=== PATIENT | female | born 1945 | race Caucasian/White ===

== ENCOUNTER 2017-06-03 09:50 | Inpatient (IN) ==
[2017-06-03] MEDS ORDERED: CLINDAMYCIN INJ 600 MG in PREMIX 1 EACH IV STA (09:57)
[2017-06-03] MEDS ORDERED: metroNIDAZOLE INJ 500 MG in PREMIX 1 EACH IV STA (09:57)
[2017-06-03] MEDS ORDERED: fentaNYL 100 MCG/2 ML VIAL ONE ×2 (10:02→15:32)
[2017-06-03] MEDS ORDERED: ONDANSETRON 4 MG/2 ML VIAL ONE ×2 (10:02→15:33)
[2017-06-03] MEDS: ONDANSETRON 4 MG/2 ML VIAL IV PRN (10:15)
[2017-06-03] MEDS ORDERED: fentaNYL 100 MCG/2 ML VIAL IV STA (10:22)
[2017-06-03 10:25] LABS: Basophils % 0.4 % (0.0-0.8); Eosinophils # 0.1 10*3/uL (0.0-0.87); Eosinophils % 1.6 % (0.00-10.9); Hematocrit 41.6 VOL% (35.7-47.0); Hemoglobin 13.8 GM/DL (12.0-16.0); Immature Granulocytes % 0.2 %; Immature Granulocytes Absolute 0.01 #; Lymphocytes # 1.8 10*3/uL (1.4-4.0); Lymphocytes % 31.5 % (21.3-54.2); Mean Corpuscular HGB Conc 33.2 GM/DL (32-36); Mean Corpuscular Hemoglobin 30 PG (27-34); Mean Corpuscular Volume 89.1 FL (87-102); Mean Platelet Volume 11.1 FL (9.6-12.0); Monocytes # 0.3 10*3/uL (0.11-0.8); Monocytes % 4.7 % (1.7-12.7); Neutrophils # 3.5 10*3/uL (1.4-7.4); Neutrophils % 61.6 % (38.7-73.9); Platelet Count 283 T/CUMM (130-400); Red Blood Count 4.67 MC/CUMM (3.8-5.5); Red Cell Distribution Width 15.9 % (9.3-17.3); White Blood Count 5.6 T/CUMM (4-12)
[2017-06-03] MEDS ORDERED: CLINDAMYCIN INJ 50 ML IV ONE (10:26)
[2017-06-03] MEDS ORDERED: metroNIDAZOLE 500 MG/100 ML PREMIX IV ONE (10:26)
[2017-06-03 10:34] LABS: INR 1.1; PT Patient Result 11.7 SECS; Partial Thromboplastin Time 38.3 SECS (0-40)
[2017-06-03 11:08] LABS: Albumin 3.7 G/DL (3.4-5.0); Bilirubin,Total 0.5 MG/DL (0.2-1.0); Calcium 8.5 MG/DL (8.5-10.1); Osmolality,Calculated 281.3 MOS/KG (273-304); Potassium 3.9 MMOL/L (3.5-5.1); Total Protein 6.4 G/DL (6.4-8.3)
[2017-06-03] MEDS ORDERED: BUPIVACAINE LIPOSOMAL 20 ML/266 MG VIAL ONE (13:01)
[2017-06-03] MEDS ORDERED: LIDOCAINE 1%/EPI INJ 20 ML VIAL ONE (15:16)
[2017-06-03] MEDS ORDERED: TISSUE ADHESIVE 1 EACH APPLICATOR TOP ONE (15:16)
[2017-06-03] MEDS ORDERED: BUPIVACAINE 0.25% 50 ML VIAL ONE (15:16)
[2017-06-03] MEDS ORDERED: PROPOFOL 200 MG/20 ML VIAL IV ONE (15:32)
[2017-06-03] MEDS ORDERED: MIDAZOLAM 2 MG/2 ML VIAL ONE (15:32)
[2017-06-03 15:33] LABS: Apearance,Urine Slightly Hazy (Clear); Bilirubin,Urine Negative (Negative); Blood, Urine Negative (Negative); Glucose,Urine (UA) Negative (Negative); Ketones,Urine Negative (Negative); Mucus,Urine Occasional /LPF (Occasional); Nitrite,Urine Negative (Negative); Protein,Urine Negative; RBC,Urine 2 /HPF (0-4); Squamous Epithelial Cell,Urine Occasional /HPF (0-10); Urine Color Yellow (Yellow); Urine Specific Gravity 1.012 (1.001-1.035); Urine Urobilinogen < 2.0 EU/DL (0.2-1.0); WBC,Urine 1 /HPF (0-6)
[2017-06-03] MEDS ORDERED: ROCURONIUM 100 MG/10 ML VIAL IV ONE (15:33)
[2017-06-03] MEDS ORDERED: SUCCINYLCHOLINE 200 MG/10 ML VIAL ONE (15:33)
[2017-06-03] MEDS ORDERED: ePHEDrine 50 MG/ML AMP ONE (15:33)
[2017-06-03] MEDS ORDERED: LACTATED RINGERS 2,000 ML IV ONE (15:34)
[2017-06-03] MEDS ORDERED: GLYCOPYRROLATE 0.4 MG/2 ML VIAL ONE (15:34)
[2017-06-03] MEDS ORDERED: NEOSTIGMINE 10 MG/10 ML VIAL ONE (15:34)
[2017-06-03] MEDS ORDERED: SEVOFLURANE 1 UNIT/15 MINUTE INH ONE (15:34)
[2017-06-03] MEDS ORDERED: ONDANSETRON 4 MG/2 ML VIAL IV PRN (15:53)
[2017-06-03] MEDS: HYDROmorphone 2 MG/1 ML VIAL IV PRN ×6 (15:58→23:43)
[2017-06-03] MEDS: LACTATED RINGERS 1,000 ML IV SCH ×3 (17:30→20:47)
[2017-06-03] MEDS ORDERED: ESMOLOL 100 MG/10 ML VIAL IV ONE (17:59)
[2017-06-03 19:55] LABS: Hematocrit 41.3 VOL% (35.7-47.0); Hemoglobin 13.5 GM/DL (12.0-16.0)
[2017-06-03] MEDS: CLINDAMYCIN INJ 900 MG in PREMIX 1 EACH IV SCH (20:49)
[2017-06-03] MEDS: metroNIDAZOLE INJ 500 MG in PREMIX 1 EACH IV SCH (22:39)
[2017-06-03] MEDS: FLUTICASONE 50 MCG NASAL SPRAY 16 GM BOTTLE BOTH NARES SCH (23:39)
[2017-06-04] MEDS: HYDROmorphone 2 MG/1 ML VIAL IV PRN ×6 (02:31→20:41)
[2017-06-04] MEDS: CLINDAMYCIN INJ 900 MG in PREMIX 1 EACH IV SCH ×3 (04:36→20:47)
[2017-06-04] MEDS ORDERED: ALBUTEROL/IPRATROPIUM 3 ML NEB RESP TX ONE (05:21)
[2017-06-04] MEDS: metroNIDAZOLE INJ 500 MG in PREMIX 1 EACH IV SCH ×3 (06:03→21:45)
[2017-06-04 07:47] LABS: Basophils % 0.2 % (0.0-0.8); Hematocrit 38.7 VOL% (35.7-47.0); Hemoglobin 12.4 GM/DL (12.0-16.0); Immature Granulocytes % 0.5 %; Immature Granulocytes Absolute 0.07 #; Lymphocytes # 0.5 10*3/uL (1.4-4.0); Lymphocytes % 3.5 % (21.3-54.2); Mean Corpuscular Hemoglobin 30 PG (27-34); Mean Corpuscular Volume 92.1 FL (87-102); Mean Platelet Volume 11.3 FL (9.6-12.0); Monocytes # 0.4 10*3/uL (0.11-0.8); Monocytes % 2.8 % (1.7-12.7); Neutrophils # 14.3 10*3/uL (1.4-7.4); Platelet Count 304 T/CUMM (130-400); Red Cell Distribution Width 16.8 % (9.3-17.3); White Blood Count 15.3 T/CUMM (4-12)
[2017-06-04 08:19] LABS: Band Neutrophils 21 % (0-10); Lymphocytes 4 % (20-55); Metamyelocytes 2 %; Segmented Neutrophils 71 % (50-85); Total Cells Counted 100
[2017-06-04 08:20] LABS: Hypochromasia 1+; Microcytosis 1+
[2017-06-04 08:28] LABS: Albumin 2.6 G/DL (3.4-5.0); Bilirubin,Total 0.8 MG/DL (0.2-1.0); Calcium 7.3 MG/DL (8.5-10.1); Osmolality,Calculated 288.8 MOS/KG (273-304); Potassium 4.3 MMOL/L (3.5-5.1)
[2017-06-04] MEDS: PANTOPRAZOLE 40 MG VIAL IV SCH (08:57)
[2017-06-04] MEDS: FLUTICASONE 50 MCG NASAL SPRAY 16 GM BOTTLE BOTH NARES SCH ×2 (08:57→21:47)
[2017-06-04] MEDS: LACTATED RINGERS 1,000 ML IV SCH ×3 (10:16→21:49)
[2017-06-04] MEDS ORDERED: PHENOL 1.4% THROAT SPRAY 177 ML BOTTLE PO PRN (11:24)
[2017-06-04] MEDS ORDERED: BENZOCAINE/MENTHOL LOZENGE 18/BOX PO PRN (12:46)
[2017-06-04] MEDS: ALBUTEROL/IPRATROPIUM 3 ML NEB RESP TX SCH ×2 (13:03→19:38)
[2017-06-04] MEDS: ENOXAPARIN 40 MG/0.4 ML SYRINGE SUBCUT SCH (13:05)
[2017-06-04] MEDS ORDERED: diphenhydrAMINE 2% CREAM 28 GM TUBE TOP PRN (15:16)
[2017-06-04] MEDS ORDERED: SKIN HEALING OINT (AQUAPHOR) 50 GM TUBE TOP PRN (15:16)
[2017-06-04] MEDS: diphenhydrAMINE 50 MG/1 ML VIAL IV PRN ×2 (15:43→21:42)
[2017-06-05] MEDS: HYDROmorphone 2 MG/1 ML VIAL IV PRN ×5 (00:19→20:14)
[2017-06-05] MEDS: ALBUTEROL/IPRATROPIUM 3 ML NEB RESP TX SCH ×4 (00:22→20:09)
[2017-06-05] MEDS: diphenhydrAMINE 50 MG/1 ML VIAL IV PRN (04:33)
[2017-06-05] MEDS: CLINDAMYCIN INJ 900 MG in PREMIX 1 EACH IV SCH ×4 (04:40→20:19)
[2017-06-05] MEDS: metroNIDAZOLE INJ 500 MG in PREMIX 1 EACH IV SCH ×4 (05:26→21:43)
[2017-06-05] MEDS: LACTATED RINGERS 1,000 ML IV SCH (08:12)
[2017-06-05] MEDS: ENOXAPARIN 40 MG/0.4 ML SYRINGE SUBCUT SCH (08:14)
[2017-06-05] MEDS: PANTOPRAZOLE 40 MG VIAL IV SCH (08:14)
[2017-06-05] MEDS: FLUTICASONE 50 MCG NASAL SPRAY 16 GM BOTTLE BOTH NARES SCH ×2 (08:19→21:44)
[2017-06-05] MEDS: AZELASTINE BOTH NARES SCH ×2 (10:44→10:53)
[2017-06-05] MEDS: FLUTICASONE BOTH NARES SCH ×2 (10:44→10:53)
[2017-06-05] MEDS: DEXTROSE 5% NACL 0.45% 1,000 ML IV SCH ×2 (11:24→14:47)
[2017-06-06] MEDS: ALBUTEROL/IPRATROPIUM 3 ML NEB RESP TX SCH ×5 (00:14→21:00)
[2017-06-06] MEDS: DEXTROSE 5% NACL 0.45% 1,000 ML IV SCH ×2 (00:56→13:44)
[2017-06-06] MEDS: HYDROmorphone 2 MG/1 ML VIAL IV PRN ×5 (03:24→23:57)
[2017-06-06] MEDS: CLINDAMYCIN INJ 900 MG in PREMIX 1 EACH IV SCH (03:25)
[2017-06-06] MEDS: metroNIDAZOLE INJ 500 MG in PREMIX 1 EACH IV SCH (04:55)
[2017-06-06 06:44] LABS: Basophils % 0.1 % (0.0-0.8); Hematocrit 32.2 VOL% (35.7-47.0); Hemoglobin 10.5 GM/DL (12.0-16.0); Immature Granulocytes % 0.3 %; Immature Granulocytes Absolute 0.04 #; Lymphocytes # 0.5 10*3/uL (1.4-4.0); Lymphocytes % 3.2 % (21.3-54.2); Mean Corpuscular HGB Conc 32.6 GM/DL (32-36); Mean Corpuscular Hemoglobin 30 PG (27-34); Mean Corpuscular Volume 90.4 FL (87-102); Mean Platelet Volume 11.4 FL (9.6-12.0); Monocytes # 0.3 10*3/uL (0.11-0.8); Monocytes % 2.2 % (1.7-12.7); Neutrophils # 13.2 10*3/uL (1.4-7.4); Neutrophils % 94.2 % (38.7-73.9); Platelet Count 247 T/CUMM (130-400); Red Blood Count 3.56 MC/CUMM (3.8-5.5); Red Cell Distribution Width 17.4 % (9.3-17.3)
[2017-06-06 07:13] LABS: Calcium 7.1 MG/DL (8.5-10.1); Magnesium 1.8 MG/DL (1.8-2.4); Osmolality,Calculated 286.1 MOS/KG (273-304); Potassium 3.5 MMOL/L (3.5-5.1)
[2017-06-06 07:25] LABS: Band Neutrophils 3 % (0-10); Lymphocytes 5 % (20-55); Segmented Neutrophils 91 % (50-85); Total Cells Counted 100
[2017-06-06] MEDS ORDERED: POTASSIUM CHLORIDE INJ 20 MEQ in DEXTROSE 5% NACL 0.45% 1,000 ML IV SCH (07:45)
[2017-06-06] MEDS: METOCLOPRAMIDE 10 MG/2 ML VIAL IV SCH ×2 (08:39→15:00)
[2017-06-06] MEDS: PANTOPRAZOLE 40 MG VIAL IV SCH (08:39)
[2017-06-06] MEDS: ALUMINUM/MAGNES/SIMETH MAX STR 30 ML UDCUP PO SCH ×3 (08:39→22:24)
[2017-06-06] MEDS: FLUTICASONE 50 MCG NASAL SPRAY 16 GM BOTTLE BOTH NARES SCH ×2 (08:40→22:43)
[2017-06-06] MEDS: ENOXAPARIN 40 MG/0.4 ML SYRINGE SUBCUT SCH (08:40)
[2017-06-06] MEDS ORDERED: FUROSEMIDE 40 MG/4 ML VIAL IV ONE ×2 (09:30→20:21)
[2017-06-06] MEDS: DEXT 5% NACL 0.45% KCL 20 MEQ 20 MEQ/1,000 ML BAG IV SCH ×2 (13:43→16:20)
[2017-06-06] MEDS: ONDANSETRON 4 MG/2 ML VIAL IV PRN (14:59)
[2017-06-06] MEDS ORDERED: DILTIAZEM 50 MG/10 ML VIAL IV ONE ×3 (19:45→19:50)
[2017-06-06 19:49] LABS: Basophils # 0.1 10*3/uL (0.0-0.2); Basophils % 0.4 % (0.0-0.8); Eosinophils % 0.2 % (0.00-10.9); Hematocrit 35.1 VOL% (35.7-47.0); Hemoglobin 11.6 GM/DL (12.0-16.0); Immature Granulocytes % 0.3 %; Immature Granulocytes Absolute 0.05 #; Lymphocytes # 1.2 10*3/uL (1.4-4.0); Lymphocytes % 7.8 % (21.3-54.2); Mean Corpuscular Hemoglobin 30 PG (27-34); Mean Corpuscular Volume 89.3 FL (87-102); Mean Platelet Volume 11.3 FL (9.6-12.0); Monocytes # 0.5 10*3/uL (0.11-0.8); Monocytes % 3.4 % (1.7-12.7); Neutrophils # 13.6 10*3/uL (1.4-7.4); Neutrophils % 87.9 % (38.7-73.9); Platelet Count 266 T/CUMM (130-400); Red Blood Count 3.93 MC/CUMM (3.8-5.5); Red Cell Distribution Width 17.4 % (9.3-17.3); White Blood Count 15.5 T/CUMM (4-12)
[2017-06-06] MEDS ORDERED: DILTIAZEM 100 MG VIAL.ADD IV ONE (19:50)
[2017-06-06] MEDS ORDERED: SODIUM CHLORIDE 0.9% 0 ML IV ONE (19:51)
[2017-06-06] MEDS ORDERED: AMIODARONE INJ 150 MG in DEXTROSE 5% 100 ML IV ONE (19:53)
[2017-06-06] MEDS: DILTIAZEM INJ 100 MG in SODIUM CHLORIDE 0.9% 100 ML IV SCH (19:55)
[2017-06-06] MEDS ORDERED: SODIUM CHLORIDE 0.9% 250 ML IV ONE (19:56)
[2017-06-06 20:10] LABS: Calcium 7.2 MG/DL (8.5-10.1); Magnesium 1.7 MG/DL (1.8-2.4); Osmolality,Calculated 278.4 MOS/KG (273-304); Potassium 3.4 MMOL/L (3.5-5.1)
[2017-06-06] MEDS ORDERED: METOPROLOL TARTRATE 5 MG/5 ML VIAL IV ONE ×2 (20:16→20:23)
[2017-06-06] MEDS ORDERED: FUROSEMIDE 40 MG/4 ML VIAL ONE (20:21)
[2017-06-06] MEDS ORDERED: POTASSIUM CHLORIDE 20 MEQ TABLET PO ONE (20:22)
[2017-06-06] MEDS ORDERED: MAGNESIUM SULF RIDER 1 GM in PREMIX 1 EACH IV ONE (20:22)
[2017-06-06] MEDS ORDERED: MAGNESIUM SULF RIDER 50 ML IV ONE (20:25)
[2017-06-06 20:34] LABS: ABG Base Excess 2.3 MMOL/L (-2.5-2.5); ABG HCO3 26.4 MMOL/L (20-26); ABG PCO2 39.1 MM HG (35-48); ABG PH 7.447 (7.35-7.45); ABG PO2 68.2 MM HG (80-95); ABG TCO2 27.6 MMOL/L (23-27)
[2017-06-07] MEDS: ONDANSETRON 4 MG/2 ML VIAL IV PRN (00:03)
[2017-06-07] MEDS: ALBUTEROL/IPRATROPIUM 3 ML NEB RESP TX SCH ×2 (01:33→08:03)
[2017-06-07] MEDS: ALUMINUM/MAGNES/SIMETH MAX STR 30 ML UDCUP PO SCH ×4 (02:12→21:49)
[2017-06-07] MEDS: DILTIAZEM INJ 100 MG in SODIUM CHLORIDE 0.9% 100 ML IV SCH ×3 (02:13→21:49)
[2017-06-07 02:38] LABS: Basophils % 0.2 % (0.0-0.8); Eosinophils % 0.1 % (0.00-10.9); Hematocrit 33.3 VOL% (35.7-47.0); Hemoglobin 10.8 GM/DL (12.0-16.0); Immature Granulocytes % 0.5 %; Immature Granulocytes Absolute 0.07 #; Lymphocytes # 0.9 10*3/uL (1.4-4.0); Lymphocytes % 5.9 % (21.3-54.2); Mean Corpuscular HGB Conc 32.4 GM/DL (32-36); Mean Corpuscular Hemoglobin 29 PG (27-34); Mean Platelet Volume 11.2 FL (9.6-12.0); Monocytes # 0.6 10*3/uL (0.11-0.8); Monocytes % 3.8 % (1.7-12.7); Neutrophils # 13.9 10*3/uL (1.4-7.4); Neutrophils % 89.5 % (38.7-73.9); Platelet Count 243 T/CUMM (130-400); Red Cell Distribution Width 17.4 % (9.3-17.3); White Blood Count 15.5 T/CUMM (4-12)
[2017-06-07 02:48] LABS: INR 1.1
[2017-06-07 02:55] LABS: Partial Thromboplastin Time 40.9 SECS (0-40)
[2017-06-07 03:07] LABS: Albumin 2.1 G/DL (3.4-5.0); Bilirubin,Total 0.4 MG/DL (0.2-1.0); Calcium 6.9 MG/DL (8.5-10.1); Osmolality,Calculated 282.1 MOS/KG (273-304); Potassium 3.4 MMOL/L (3.5-5.1); Total Protein 4.7 G/DL (6.4-8.3)
[2017-06-07 03:49] LABS: Allen Test Positive
[2017-06-07 03:50] LABS: ABG Base Excess 3.1 MMOL/L (-2.5-2.5); ABG HCO3 27.1 MMOL/L (20-26); ABG Oxygen Saturation 96.9 % (95-100); ABG PO2 79.8 MM HG (80-95); ABG TCO2 26.2 MMOL/L (23-27)
[2017-06-07] MEDS: HYDROmorphone 2 MG/1 ML VIAL IV PRN ×3 (04:40→16:12)
[2017-06-07 06:33] LABS: Band Neutrophils 19 % (0-10); Hypochromasia 1+; Lymphocytes 4 % (20-55); Platelet Estimate Adequate; Segmented Neutrophils 72 % (50-85); Total Cells Counted 100
[2017-06-07] MEDS ORDERED: FUROSEMIDE 40 MG/4 ML VIAL IV ONE (08:36)
[2017-06-07] MEDS: ENOXAPARIN 40 MG/0.4 ML SYRINGE SUBCUT SCH (12:05)
[2017-06-07] MEDS: PANTOPRAZOLE 40 MG VIAL IV SCH (12:05)
[2017-06-07] MEDS: FLUTICASONE 50 MCG NASAL SPRAY 16 GM BOTTLE BOTH NARES SCH ×2 (12:06→21:51)
[2017-06-07 13:32] LABS: Free T4 (Free Thyroxine) 0.97 NG/DL (0.76-1.46); Thyroid Stimulating Hormone 0.594 uIU/ml (0.358-3.74)
[2017-06-07 13:33] LABS: Troponin I Only 0.098 NG/ML (0.00-0.045)
[2017-06-07] MEDS: ALBUTEROL 2.5 MG/3 ML NEB RESP TX SCH (15:45)
[2017-06-08] MEDS: HYDROmorphone 2 MG/1 ML VIAL IV PRN ×2 (00:06→04:00)
[2017-06-08] MEDS: ALBUTEROL 2.5 MG/3 ML NEB RESP TX SCH ×4 (00:57→23:38)
[2017-06-08] MEDS: ALUMINUM/MAGNES/SIMETH MAX STR 30 ML UDCUP PO SCH ×4 (01:38→21:01)
[2017-06-08 05:46] LABS: Basophils # 0.1 10*3/uL (0.0-0.2); Basophils % 0.6 % (0.0-0.8); Eosinophils % 0.1 % (0.00-10.9); Hematocrit 35.5 VOL% (35.7-47.0); Hemoglobin 11.6 GM/DL (12.0-16.0); Immature Granulocytes % 0.6 %; Immature Granulocytes Absolute 0.06 #; Lymphocytes # 0.7 10*3/uL (1.4-4.0); Lymphocytes % 6.6 % (21.3-54.2); Mean Corpuscular HGB Conc 32.7 GM/DL (32-36); Mean Corpuscular Hemoglobin 30 PG (27-34); Mean Platelet Volume 11.7 FL (9.6-12.0); Monocytes # 0.7 10*3/uL (0.11-0.8); Neutrophils # 9.3 10*3/uL (1.4-7.4); Neutrophils % 86.1 % (38.7-73.9); Platelet Count 263 T/CUMM (130-400); Red Cell Distribution Width 17.8 % (9.3-17.3); White Blood Count 10.8 T/CUMM (4-12)
[2017-06-08 05:59] LABS: Calcium 7.6 MG/DL (8.5-10.1); Magnesium 2.2 MG/DL (1.8-2.4); Osmolality,Calculated 291.6 MOS/KG (273-304); Potassium 3.5 MMOL/L (3.5-5.1)
[2017-06-08 06:25] LABS: Risk Ratio 5.55; VLDL CHOLESTEROL 35.2 MG/DL
[2017-06-08] MEDS: DILTIAZEM INJ 100 MG in SODIUM CHLORIDE 0.9% 100 ML IV SCH ×2 (06:33→15:00)
[2017-06-08 07:11] LABS: Band Neutrophils 2 % (0-10); Hypochromasia 1+; Lymphocytes 2 % (20-55); Metamyelocytes 1 %; Microcytosis 1+; Segmented Neutrophils 91 % (50-85); Total Cells Counted 100
[2017-06-08 07:12] LABS: Platelet Estimate Normal
[2017-06-08] MEDS ORDERED: FUROSEMIDE 40 MG/4 ML VIAL IV SCH (09:00)
[2017-06-08] MEDS: FLUTICASONE 50 MCG NASAL SPRAY 16 GM BOTTLE BOTH NARES SCH ×2 (09:23→21:01)
[2017-06-08] MEDS: ENOXAPARIN 40 MG/0.4 ML SYRINGE SUBCUT SCH (09:26)
[2017-06-08] MEDS: PANTOPRAZOLE 40 MG VIAL IV SCH (09:26)
[2017-06-08] MEDS ORDERED: SODIUM PHOSPHATE ENEMA 133 ML BOTTLE RECTAL ONE (11:17)
[2017-06-08] MEDS: ONDANSETRON 4 MG/2 ML VIAL IV PRN (23:11)
[2017-06-09] MEDS: HYDROmorphone 2 MG/1 ML VIAL IV PRN ×3 (00:20→20:18)
[2017-06-09] MEDS: ALUMINUM/MAGNES/SIMETH MAX STR 30 ML UDCUP PO SCH ×4 (03:29→20:16)
[2017-06-09] MEDS: ONDANSETRON 4 MG/2 ML VIAL IV PRN ×3 (03:29→18:11)
[2017-06-09 04:38] LABS: Basophils % 0.1 % (0.0-0.8); Hematocrit 37.2 VOL% (35.7-47.0); Hemoglobin 12.5 GM/DL (12.0-16.0); Immature Granulocytes % 0.9 %; Immature Granulocytes Absolute 0.08 #; Lymphocytes # 0.7 10*3/uL (1.4-4.0); Lymphocytes % 7.5 % (21.3-54.2); Mean Corpuscular HGB Conc 33.6 GM/DL (32-36); Mean Corpuscular Hemoglobin 30 PG (27-34); Mean Corpuscular Volume 88.8 FL (87-102); Mean Platelet Volume 11.5 FL (9.6-12.0); Monocytes # 0.4 10*3/uL (0.11-0.8); Monocytes % 4.6 % (1.7-12.7); NRBC # 0.02 10*3/uL; Neutrophils # 7.7 10*3/uL (1.4-7.4); Neutrophils % 86.9 % (38.7-73.9); Platelet Count 317 T/CUMM (130-400); Red Blood Count 4.19 MC/CUMM (3.8-5.5); Red Cell Distribution Width 17.5 % (9.3-17.3); White Blood Count 8.9 T/CUMM (4-12)
[2017-06-09 04:54] LABS: Calcium 7.8 MG/DL (8.5-10.1); Magnesium 2.5 MG/DL (1.8-2.4); Osmolality,Calculated 297.4 MOS/KG (273-304); Potassium 2.9 MMOL/L (3.5-5.1)
[2017-06-09 05:45] LABS: Band Neutrophils 12 % (0-10); Lymphocytes 10 % (20-55); Nucleated Red Blood Cells 1 (0-5); Platelet Estimate Normal; Segmented Neutrophils 74 % (50-85); Total Cells Counted 100
[2017-06-09 05:47] LABS: Anisocytosis 1+; Hypochromasia 2+; Macrocytosis 1+
[2017-06-09] MEDS: ALBUTEROL 2.5 MG/3 ML NEB RESP TX SCH ×3 (07:46→22:48)
[2017-06-09] MEDS: PANTOPRAZOLE 40 MG VIAL IV SCH (08:58)
[2017-06-09] MEDS: FLUTICASONE 50 MCG NASAL SPRAY 16 GM BOTTLE BOTH NARES SCH ×2 (08:58→20:26)
[2017-06-09] MEDS: ENOXAPARIN 40 MG/0.4 ML SYRINGE SUBCUT SCH (08:58)
[2017-06-09] MEDS: DILTIAZEM INJ 100 MG in SODIUM CHLORIDE 0.9% 100 ML IV SCH (11:52)
[2017-06-09] MEDS ORDERED: SODIUM PHOSPHATE ENEMA 133 ML BOTTLE RECTAL PRN (11:53)
[2017-06-09] MEDS ORDERED: POTASSIUM CHLORIDE 20 MEQ/15 ML UDCUP PO ONE (11:54)
[2017-06-09] MEDS: METOPROLOL TARTRATE 25 MG TABLET PO SCH ×2 (12:26→20:16)
[2017-06-09] MEDS: POTASSIUM CHLORIDE RIDER 10 MEQ in PREMIX 1 EACH IV PRN ×5 (12:31→16:44)
[2017-06-09] MEDS ORDERED: LACTATED RINGERS 1,000 ML IV ONE (13:40)
[2017-06-09] MEDS ORDERED: EPINEPHrine 1 MG/10 ML SYRINGE ONE (14:03)
[2017-06-09 20:45] LABS: Calcium 7.7 MG/DL (8.5-10.1); Magnesium 2.6 MG/DL (1.8-2.4); Osmolality,Calculated 297.6 MOS/KG (273-304); Phosphorous 0.8 MG/DL (2.5-4.9); Potassium 3.5 MMOL/L (3.5-5.1)
[2017-06-10] MEDS: ALUMINUM/MAGNES/SIMETH MAX STR 30 ML UDCUP PO SCH ×4 (03:23→20:48)
[2017-06-10] MEDS: DILTIAZEM INJ 100 MG in SODIUM CHLORIDE 0.9% 100 ML IV SCH ×2 (03:24→21:42)
[2017-06-10 06:05] LABS: Basophils # 0.1 10*3/uL (0.0-0.2); Basophils % 0.4 % (0.0-0.8); Eosinophils # 0.1 10*3/uL (0.0-0.87); Eosinophils % 1.3 % (0.00-10.9); Hematocrit 33.1 VOL% (35.7-47.0); Hemoglobin 10.9 GM/DL (12.0-16.0); Immature Granulocytes % 0.9 %; Lymphocytes % 9.1 % (21.3-54.2); Mean Corpuscular HGB Conc 32.9 GM/DL (32-36); Mean Corpuscular Hemoglobin 29 PG (27-34); Mean Corpuscular Volume 88.7 FL (87-102); Monocytes # 0.5 10*3/uL (0.11-0.8); Monocytes % 4.4 % (1.7-12.7); NRBC # 0.02 10*3/uL; Neutrophils # 9.4 10*3/uL (1.4-7.4); Neutrophils % 83.9 % (38.7-73.9); Platelet Count 303 T/CUMM (130-400); Red Blood Count 3.73 MC/CUMM (3.8-5.5); Red Cell Distribution Width 17.3 % (9.3-17.3); White Blood Count 11.2 T/CUMM (4-12)
[2017-06-10 06:18] LABS: Calcium 7.8 MG/DL (8.5-10.1); Magnesium 2.7 MG/DL (1.8-2.4); Osmolality,Calculated 302.1 MOS/KG (273-304); Potassium 3.6 MMOL/L (3.5-5.1)
[2017-06-10 06:47] LABS: Hypochromasia 1+; Platelet Estimate Adequate
[2017-06-10 06:48] LABS: Giant Platelets Few; Microcytosis Slight
[2017-06-10] MEDS: ALBUTEROL 2.5 MG/3 ML NEB RESP TX SCH ×3 (07:37→23:42)
[2017-06-10] MEDS: ENOXAPARIN 40 MG/0.4 ML SYRINGE SUBCUT SCH (08:19)
[2017-06-10] MEDS: METOPROLOL TARTRATE 25 MG TABLET PO SCH ×2 (08:19→20:47)
[2017-06-10] MEDS: FLUTICASONE 50 MCG NASAL SPRAY 16 GM BOTTLE BOTH NARES SCH ×2 (08:20→20:48)
[2017-06-10] MEDS: PANTOPRAZOLE 40 MG VIAL IV SCH (08:20)
[2017-06-10] MEDS: ASCORBIC ACID 500 MG TABLET PO SCH ×2 (15:30→20:47)
[2017-06-11] MEDS: ALUMINUM/MAGNES/SIMETH MAX STR 30 ML UDCUP PO SCH ×4 (02:49→20:26)
[2017-06-11] MEDS: LORazepam 2 MG/1 ML VIAL IV PRN ×2 (03:18→06:12)
[2017-06-11 05:30] LABS: Basophils % 0.3 % (0.0-0.8); Eosinophils # 0.1 10*3/uL (0.0-0.87); Eosinophils % 0.4 % (0.00-10.9); Hematocrit 31.9 VOL% (35.7-47.0); Hemoglobin 10.7 GM/DL (12.0-16.0); Immature Granulocytes % 1.7 %; Immature Granulocytes Absolute 0.24 #; Lymphocytes # 1.3 10*3/uL (1.4-4.0); Lymphocytes % 8.8 % (21.3-54.2); Mean Corpuscular HGB Conc 33.5 GM/DL (32-36); Mean Corpuscular Hemoglobin 29 PG (27-34); Mean Corpuscular Volume 87.6 FL (87-102); Monocytes # 0.5 10*3/uL (0.11-0.8); Monocytes % 3.4 % (1.7-12.7); NRBC # 0.03 10*3/uL; Neutrophils # 12.4 10*3/uL (1.4-7.4); Neutrophils % 85.4 % (38.7-73.9); Platelet Count 309 T/CUMM (130-400); Red Blood Count 3.64 MC/CUMM (3.8-5.5); Red Cell Distribution Width 17.3 % (9.3-17.3); White Blood Count 14.5 T/CUMM (4-12)
[2017-06-11 05:54] LABS: Calcium 7.6 MG/DL (8.5-10.1); Magnesium 2.3 MG/DL (1.8-2.4); Osmolality,Calculated 288.7 MOS/KG (273-304); Potassium 3.2 MMOL/L (3.5-5.1)
[2017-06-11 06:11] LABS: Band Neutrophils 3 % (0-10); Lymphocytes 6 % (20-55); Segmented Neutrophils 87 % (50-85); Total Cells Counted 100
[2017-06-11 06:12] LABS: Anisocytosis 1+; Microcytosis 1+; Platelet Estimate Normal
[2017-06-11] MEDS: POTASSIUM CHLORIDE RIDER 10 MEQ in PREMIX 1 EACH IV PRN (06:48)
[2017-06-11] MEDS: ALBUTEROL 2.5 MG/3 ML NEB RESP TX SCH ×2 (07:31→15:51)
[2017-06-11] MEDS: POTASSIUM CHLORIDE RIDER 20 MEQ in PREMIX 1 EACH IV PRN ×2 (08:42→16:54)
[2017-06-11] MEDS: ENOXAPARIN 40 MG/0.4 ML SYRINGE SUBCUT SCH (08:55)
[2017-06-11] MEDS: PANTOPRAZOLE 40 MG VIAL IV SCH (08:56)
[2017-06-11] MEDS ORDERED: QUEtiapine 25 MG TABLET PO SCH (09:00)
[2017-06-11] MEDS ORDERED: FUROSEMIDE 40 MG/4 ML VIAL IV ONE (09:00)
[2017-06-11] MEDS: FLUTICASONE 50 MCG NASAL SPRAY 16 GM BOTTLE BOTH NARES SCH ×2 (09:00→21:20)
[2017-06-11] MEDS: METOPROLOL TARTRATE 25 MG TABLET PO SCH ×2 (09:00→21:17)
[2017-06-11] MEDS: ASCORBIC ACID 500 MG TABLET PO SCH ×2 (09:00→21:20)
[2017-06-11] MEDS: DILTIAZEM INJ 100 MG in SODIUM CHLORIDE 0.9% 100 ML IV SCH (20:26)
[2017-06-11] MEDS: QUEtiapine 25 MG TABLET PO SCH (21:17)
[2017-06-12] MEDS: ALBUTEROL 2.5 MG/3 ML NEB RESP TX SCH ×3 (00:06→15:04)
[2017-06-12] MEDS: ALUMINUM/MAGNES/SIMETH MAX STR 30 ML UDCUP PO SCH ×4 (03:10→20:38)
[2017-06-12 06:17] LABS: Basophils # 0.1 10*3/uL (0.0-0.2); Basophils % 0.2 % (0.0-0.8); Eosinophils # 0.1 10*3/uL (0.0-0.87); Eosinophils % 0.4 % (0.00-10.9); Hemoglobin 11.2 GM/DL (12.0-16.0); Immature Granulocytes % 1.1 %; Immature Granulocytes Absolute 0.23 #; Lymphocytes # 1.7 10*3/uL (1.4-4.0); Lymphocytes % 8.1 % (21.3-54.2); Mean Corpuscular HGB Conc 33.9 GM/DL (32-36); Mean Corpuscular Hemoglobin 30 PG (27-34); Mean Corpuscular Volume 87.5 FL (87-102); Mean Platelet Volume 11.9 FL (9.6-12.0); Monocytes # 0.6 10*3/uL (0.11-0.8); Monocytes % 2.7 % (1.7-12.7); NRBC # 0.03 10*3/uL; Neutrophils # 18.6 10*3/uL (1.4-7.4); Neutrophils % 87.5 % (38.7-73.9); Platelet Count 319 T/CUMM (130-400); Red Blood Count 3.77 MC/CUMM (3.8-5.5); Red Cell Distribution Width 17.4 % (9.3-17.3); White Blood Count 21.2 T/CUMM (4-12)
[2017-06-12 06:49] LABS: Band Neutrophils 3 % (0-10); Giant Platelets Few; Hypochromasia 1+; Lymphocytes 5 % (20-55); Microcytosis Slight; Ovalocytes Slight; Platelet Estimate Adequate; Segmented Neutrophils 91 % (50-85); Total Cells Counted 100
[2017-06-12 06:50] LABS: Magnesium 2.1 MG/DL (1.8-2.4); Osmolality,Calculated 289.6 MOS/KG (273-304); Potassium 3.4 MMOL/L (3.5-5.1)
[2017-06-12] MEDS: METOPROLOL TARTRATE 25 MG TABLET PO SCH ×2 (11:27→20:39)
[2017-06-12] MEDS: POTASSIUM CHLORIDE 10 MEQ TABLET PO SCH ×2 (11:27→20:38)
[2017-06-12] MEDS: MAGNESIUM CHLORIDE 64 MG TABLET PO SCH (11:28)
[2017-06-12] MEDS: ASCORBIC ACID 500 MG TABLET PO SCH ×2 (11:28→20:38)
[2017-06-12] MEDS: FLUTICASONE 50 MCG NASAL SPRAY 16 GM BOTTLE BOTH NARES SCH ×2 (11:32→20:41)
[2017-06-12] MEDS: ENOXAPARIN 40 MG/0.4 ML SYRINGE SUBCUT SCH (11:33)
[2017-06-12] MEDS: PANTOPRAZOLE 40 MG VIAL IV SCH (11:35)
[2017-06-12] MEDS: oxyCODONE/ACETAMINOPHEN 5-325 MG TABLET PO PRN (18:11)
[2017-06-12] MEDS: cefTRIAXone 1,000 MG in SYRINGE 1 EACH IV SCH (18:12)
[2017-06-12] MEDS: QUEtiapine 25 MG TABLET PO SCH (20:38)
[2017-06-12] MEDS: ACETAMINOPHEN 325 MG TABLET PO PRN (20:39)
[2017-06-13] MEDS: ALBUTEROL 2.5 MG/3 ML NEB RESP TX SCH ×3 (00:44→14:16)
[2017-06-13] MEDS: oxyCODONE/ACETAMINOPHEN 5-325 MG TABLET PO PRN ×3 (03:11→18:21)
[2017-06-13 06:56] LABS: Calcium 8.4 MG/DL (8.5-10.1); Magnesium 2.2 MG/DL (1.8-2.4); Osmolality,Calculated 288.7 MOS/KG (273-304); Potassium 3.4 MMOL/L (3.5-5.1)
[2017-06-13] MEDS ORDERED: CHLORHEXIDINE 4% SOLN 118 ML BOTTLE TOP ONE (09:00)
[2017-06-13] MEDS ORDERED: MEROPENEM IV SCH ×2 (09:00→10:00)
[2017-06-13 09:09] LABS: Basophils # 0.1 10*3/uL (0.0-0.2); Basophils % 0.3 % (0.0-0.8); Eosinophils # 0.3 10*3/uL (0.0-0.87); Eosinophils % 1.7 % (0.00-10.9); Hematocrit 31.3 VOL% (35.7-47.0); Hemoglobin 10.4 GM/DL (12.0-16.0); Immature Granulocytes % 0.8 %; Immature Granulocytes Absolute 0.14 #; Lymphocytes # 1.5 10*3/uL (1.4-4.0); Lymphocytes % 8.6 % (21.3-54.2); Mean Corpuscular HGB Conc 33.2 GM/DL (32-36); Mean Corpuscular Hemoglobin 29 PG (27-34); Mean Corpuscular Volume 88.4 FL (87-102); Mean Platelet Volume 12.3 FL (9.6-12.0); Monocytes # 0.6 10*3/uL (0.11-0.8); Monocytes % 3.6 % (1.7-12.7); Neutrophils # 14.8 10*3/uL (1.4-7.4); Platelet Count 319 T/CUMM (130-400); Red Blood Count 3.54 MC/CUMM (3.8-5.5); Red Cell Distribution Width 17.6 % (9.3-17.3); White Blood Count 17.4 T/CUMM (4-12)
[2017-06-13] MEDS ORDERED: POTASSIUM CHLORIDE 20 MEQ/15 ML UDCUP PER TUBE PRN (12:21)
[2017-06-13] MEDS: ASCORBIC ACID 500 MG TABLET PO SCH ×2 (12:47→20:11)
[2017-06-13] MEDS: PANTOPRAZOLE 40 MG TABLET PO SCH (12:47)
[2017-06-13] MEDS: ACETAMINOPHEN 325 MG TABLET PO PRN (12:48)
[2017-06-13] MEDS: metroNIDAZOLE INJ 500 MG in PREMIX 1 EACH IV SCH ×2 (12:49→18:25)
[2017-06-13] MEDS: MAGNESIUM CHLORIDE 64 MG TABLET PO SCH (12:49)
[2017-06-13] MEDS: POTASSIUM CHLORIDE 10 MEQ TABLET PO SCH ×2 (12:49→20:11)
[2017-06-13] MEDS: ENOXAPARIN 40 MG/0.4 ML SYRINGE SUBCUT SCH (12:49)
[2017-06-13] MEDS: ALUMINUM/MAGNES/SIMETH MAX STR 30 ML UDCUP PO SCH (12:49)
[2017-06-13] MEDS: SODIUM HYPOCHLORITE 0.25% IRRIG 473 ML BOTTLE TOP SCH (13:12)
[2017-06-13] MEDS: METOPROLOL TARTRATE 25 MG TABLET PO SCH ×2 (13:12→20:16)
[2017-06-13] MEDS ORDERED: POTASSIUM CHLORIDE 10 MEQ TABLET PO SCH (13:30)
[2017-06-13] MEDS: MEROPENEM 1,000 MG in SYRINGE 1 EACH IV SCH ×2 (15:06→19:55)
[2017-06-13] MEDS: FLUTICASONE 50 MCG NASAL SPRAY 16 GM BOTTLE BOTH NARES SCH ×2 (15:08→20:04)
[2017-06-13] MEDS: DESITIN 4OZ/NYSTATIN 15 GRAM MIXTURE PASTE TOP SCH ×2 (15:09→20:12)
[2017-06-13] MEDS: cefTRIAXone 1,000 MG in SYRINGE 1 EACH IV SCH (16:37)
[2017-06-14] MEDS: ALBUTEROL 2.5 MG/3 ML NEB RESP TX SCH ×3 (00:07→15:32)
[2017-06-14] MEDS: oxyCODONE/ACETAMINOPHEN 5-325 MG TABLET PO PRN ×4 (00:32→21:58)
[2017-06-14] MEDS: metroNIDAZOLE INJ 500 MG in PREMIX 1 EACH IV SCH ×3 (00:33→17:44)
[2017-06-14] MEDS: MEROPENEM 1,000 MG in SYRINGE 1 EACH IV SCH ×3 (02:35→19:07)
[2017-06-14 06:13] LABS: Basophils % 0.3 % (0.0-0.8); Eosinophils # 0.2 10*3/uL (0.0-0.87); Eosinophils % 1.5 % (0.00-10.9); Hematocrit 31.1 VOL% (35.7-47.0); Hemoglobin 10.1 GM/DL (12.0-16.0); Immature Granulocytes % 0.8 %; Lymphocytes # 1.2 10*3/uL (1.4-4.0); Lymphocytes % 9.2 % (21.3-54.2); Mean Corpuscular HGB Conc 32.5 GM/DL (32-36); Mean Corpuscular Hemoglobin 29 PG (27-34); Mean Corpuscular Volume 88.4 FL (87-102); Mean Platelet Volume 11.8 FL (9.6-12.0); Monocytes # 0.7 10*3/uL (0.11-0.8); Monocytes % 5.2 % (1.7-12.7); Neutrophils # 10.4 10*3/uL (1.4-7.4); Platelet Count 344 T/CUMM (130-400); Red Blood Count 3.52 MC/CUMM (3.8-5.5); Red Cell Distribution Width 17.4 % (9.3-17.3); White Blood Count 12.5 T/CUMM (4-12)
[2017-06-14 06:48] LABS: Calcium 8.5 MG/DL (8.5-10.1); Osmolality,Calculated 285.8 MOS/KG (273-304); Potassium 3.8 MMOL/L (3.5-5.1)
[2017-06-14] MEDS: ASCORBIC ACID 500 MG TABLET PO SCH ×2 (08:41→21:06)
[2017-06-14] MEDS: MAGNESIUM CHLORIDE 64 MG TABLET PO SCH (08:42)
[2017-06-14] MEDS: ALUMINUM/MAGNES/SIMETH MAX STR 30 ML UDCUP PO SCH ×2 (08:42→10:09)
[2017-06-14] MEDS: METOPROLOL TARTRATE 25 MG TABLET PO SCH ×2 (08:44→21:06)
[2017-06-14] MEDS: POTASSIUM CHLORIDE 10 MEQ TABLET PO SCH ×2 (08:44→21:06)
[2017-06-14] MEDS: PANTOPRAZOLE 40 MG TABLET PO SCH (08:44)
[2017-06-14] MEDS: ENOXAPARIN 40 MG/0.4 ML SYRINGE SUBCUT SCH (08:49)
[2017-06-14] MEDS: DESITIN 4OZ/NYSTATIN 15 GRAM MIXTURE PASTE TOP SCH ×2 (08:58→21:07)
[2017-06-14] MEDS: FLUTICASONE 50 MCG NASAL SPRAY 16 GM BOTTLE BOTH NARES SCH ×2 (08:58→21:07)
[2017-06-14] MEDS: SODIUM CHLORIDE 0.45% 1,000 ML IV SCH (12:13)
[2017-06-14] MEDS: NYSTATIN 500,000 UNIT/5 ML UDCUP SWISH/SWAL SCH ×3 (12:18→21:27)
[2017-06-14] MEDS: SODIUM HYPOCHLORITE 0.25% IRRIG 473 ML BOTTLE TOP SCH (12:19)
[2017-06-14] MEDS: cefTRIAXone 1,000 MG in SYRINGE 1 EACH IV SCH (13:50)
[2017-06-14] MEDS: FLUCONAZOLE INJ 100 MG in IV BAG 1 EACH IV SCH (19:06)
[2017-06-15] MEDS: metroNIDAZOLE INJ 500 MG in PREMIX 1 EACH IV SCH ×3 (01:22→17:15)
[2017-06-15] MEDS: SODIUM CHLORIDE 0.45% 1,000 ML IV SCH ×2 (01:22→15:07)
[2017-06-15] MEDS: MEROPENEM 1,000 MG in SYRINGE 1 EACH IV SCH ×3 (02:26→18:32)
[2017-06-15] MEDS: oxyCODONE/ACETAMINOPHEN 5-325 MG TABLET PO PRN ×2 (03:48→23:06)
[2017-06-15 07:00] LABS: Basophils % 0.4 % (0.0-0.8); Eosinophils # 0.2 10*3/uL (0.0-0.87); Eosinophils % 1.3 % (0.00-10.9); Hematocrit 30.8 VOL% (35.7-47.0); Hemoglobin 10.4 GM/DL (12.0-16.0); Immature Granulocytes % 0.9 %; Lymphocytes # 1.3 10*3/uL (1.4-4.0); Lymphocytes % 11.2 % (21.3-54.2); Mean Corpuscular HGB Conc 33.8 GM/DL (32-36); Mean Corpuscular Hemoglobin 30 PG (27-34); Mean Corpuscular Volume 87.7 FL (87-102); Monocytes # 0.7 10*3/uL (0.11-0.8); Monocytes % 5.9 % (1.7-12.7); Neutrophils # 9.2 10*3/uL (1.4-7.4); Neutrophils % 80.3 % (38.7-73.9); Platelet Count 388 T/CUMM (130-400); Red Blood Count 3.51 MC/CUMM (3.8-5.5); Red Cell Distribution Width 17.4 % (9.3-17.3); White Blood Count 11.4 T/CUMM (4-12)
[2017-06-15 07:33] LABS: Hypochromasia 1+
[2017-06-15] MEDS: ALBUTEROL 2.5 MG/3 ML NEB RESP TX SCH ×2 (07:33→16:44)
[2017-06-15 07:39] LABS: Calcium 8.2 MG/DL (8.5-10.1); Magnesium 1.9 MG/DL (1.8-2.4); Osmolality,Calculated 278.3 MOS/KG (273-304); Potassium 3.9 MMOL/L (3.5-5.1)
[2017-06-15] MEDS: MAGNESIUM CHLORIDE 64 MG TABLET PO SCH (10:48)
[2017-06-15] MEDS: PANTOPRAZOLE 40 MG TABLET PO SCH (10:48)
[2017-06-15] MEDS: ASCORBIC ACID 500 MG TABLET PO SCH ×2 (10:49→21:45)
[2017-06-15] MEDS: POTASSIUM CHLORIDE 10 MEQ TABLET PO SCH ×2 (10:49→21:45)
[2017-06-15] MEDS: METOPROLOL TARTRATE 25 MG TABLET PO SCH ×2 (10:49→21:45)
[2017-06-15] MEDS: NYSTATIN 500,000 UNIT/5 ML UDCUP SWISH/SWAL SCH ×4 (10:51→21:45)
[2017-06-15] MEDS: FLUTICASONE 50 MCG NASAL SPRAY 16 GM BOTTLE BOTH NARES SCH ×2 (10:58→21:44)
[2017-06-15] MEDS: ENOXAPARIN 40 MG/0.4 ML SYRINGE SUBCUT SCH (10:59)
[2017-06-15] MEDS: DESITIN 4OZ/NYSTATIN 15 GRAM MIXTURE PASTE TOP SCH ×2 (10:59→21:46)
[2017-06-15] MEDS: SODIUM HYPOCHLORITE 0.25% IRRIG 473 ML BOTTLE TOP SCH (11:00)
[2017-06-15] MEDS: ALUMINUM/MAGNES/SIMETH MAX STR 30 ML UDCUP PO SCH (11:26)
[2017-06-15] MEDS: cefTRIAXone 1,000 MG in SYRINGE 1 EACH IV SCH (13:27)
[2017-06-15] MEDS: ACETAMINOPHEN 325 MG TABLET PO PRN ×2 (13:35→21:30)
[2017-06-15] MEDS: FLUCONAZOLE INJ 100 MG in IV BAG 1 EACH IV SCH (20:16)
[2017-06-16] MEDS: ALBUTEROL 2.5 MG/3 ML NEB RESP TX SCH ×4 (00:23→23:38)
[2017-06-16] MEDS: metroNIDAZOLE INJ 500 MG in PREMIX 1 EACH IV SCH ×3 (00:40→17:01)
[2017-06-16] MEDS: MEROPENEM 1,000 MG in SYRINGE 1 EACH IV SCH ×3 (03:29→18:26)
[2017-06-16] MEDS: ASCORBIC ACID 500 MG TABLET PO SCH ×2 (09:01→21:05)
[2017-06-16] MEDS: MAGNESIUM CHLORIDE 64 MG TABLET PO SCH (09:01)
[2017-06-16] MEDS: POTASSIUM CHLORIDE 10 MEQ TABLET PO SCH ×2 (09:02→21:05)
[2017-06-16] MEDS: PANTOPRAZOLE 40 MG TABLET PO SCH (09:02)
[2017-06-16] MEDS: FLUTICASONE 50 MCG NASAL SPRAY 16 GM BOTTLE BOTH NARES SCH ×2 (09:04→21:45)
[2017-06-16] MEDS: NYSTATIN 500,000 UNIT/5 ML UDCUP SWISH/SWAL SCH ×4 (09:04→21:45)
[2017-06-16] MEDS: SODIUM HYPOCHLORITE 0.25% IRRIG 473 ML BOTTLE TOP SCH (09:04)
[2017-06-16] MEDS: ENOXAPARIN 40 MG/0.4 ML SYRINGE SUBCUT SCH (09:10)
[2017-06-16] MEDS: DESITIN 4OZ/NYSTATIN 15 GRAM MIXTURE PASTE TOP SCH ×2 (09:13→21:45)
[2017-06-16] MEDS: ALUMINUM/MAGNES/SIMETH MAX STR 30 ML UDCUP PO SCH (09:13)
[2017-06-16] MEDS: METOPROLOL TARTRATE 25 MG TABLET PO SCH ×2 (09:13→21:44)
[2017-06-16] MEDS: ACETAMINOPHEN 325 MG TABLET PO PRN (11:45)
[2017-06-16] MEDS: ONDANSETRON 4 MG/2 ML VIAL IV PRN (13:20)
[2017-06-16] MEDS: cefTRIAXone 1,000 MG in SYRINGE 1 EACH IV SCH (13:23)
[2017-06-16] MEDS: SODIUM CHLORIDE 0.45% 1,000 ML IV SCH (14:56)
[2017-06-16] MEDS: FLUCONAZOLE INJ 100 MG in IV BAG 1 EACH IV SCH (21:06)
[2017-06-16] MEDS: oxyCODONE/ACETAMINOPHEN 5-325 MG TABLET PO PRN (22:05)
[2017-06-17] MEDS: metroNIDAZOLE INJ 500 MG in PREMIX 1 EACH IV SCH ×3 (01:33→17:20)
[2017-06-17] MEDS: MEROPENEM 1,000 MG in SYRINGE 1 EACH IV SCH ×3 (03:55→18:24)
[2017-06-17] MEDS: ALBUTEROL 2.5 MG/3 ML NEB RESP TX SCH ×3 (07:15→23:15)
[2017-06-17] MEDS: POTASSIUM CHLORIDE 10 MEQ TABLET PO SCH ×2 (10:54→22:01)
[2017-06-17] MEDS: SODIUM HYPOCHLORITE 0.25% IRRIG 473 ML BOTTLE TOP SCH (10:54)
[2017-06-17] MEDS: PANTOPRAZOLE 40 MG TABLET PO SCH (10:54)
[2017-06-17] MEDS: MAGNESIUM CHLORIDE 64 MG TABLET PO SCH (10:54)
[2017-06-17] MEDS: ASCORBIC ACID 500 MG TABLET PO SCH ×2 (10:55→22:01)
[2017-06-17] MEDS: NYSTATIN 500,000 UNIT/5 ML UDCUP SWISH/SWAL SCH ×4 (10:56→22:01)
[2017-06-17] MEDS: ENOXAPARIN 40 MG/0.4 ML SYRINGE SUBCUT SCH (10:57)
[2017-06-17] MEDS: FLUTICASONE 50 MCG NASAL SPRAY 16 GM BOTTLE BOTH NARES SCH ×2 (11:00→22:02)
[2017-06-17] MEDS: DESITIN 4OZ/NYSTATIN 15 GRAM MIXTURE PASTE TOP SCH ×2 (11:01→22:02)
[2017-06-17] MEDS: ALUMINUM/MAGNES/SIMETH MAX STR 30 ML UDCUP PO SCH (13:20)
[2017-06-17] MEDS: METOPROLOL TARTRATE 25 MG TABLET PO SCH ×2 (13:20→22:05)
[2017-06-17] MEDS: ACETAMINOPHEN 325 MG TABLET PO PRN ×2 (13:27→22:04)
[2017-06-17] MEDS: cefTRIAXone 1,000 MG in SYRINGE 1 EACH IV SCH (15:17)
[2017-06-17] MEDS: SODIUM CHLORIDE 0.45% 1,000 ML IV SCH (17:21)
[2017-06-17] MEDS: FLUCONAZOLE INJ 100 MG in IV BAG 1 EACH IV SCH (22:02)
[2017-06-18] MEDS: metroNIDAZOLE INJ 500 MG in PREMIX 1 EACH IV SCH ×3 (01:07→18:31)
[2017-06-18] MEDS: MEROPENEM 1,000 MG in SYRINGE 1 EACH IV SCH ×3 (04:53→21:10)
[2017-06-18] MEDS: oxyCODONE/ACETAMINOPHEN 5-325 MG TABLET PO PRN ×2 (04:56→21:01)
[2017-06-18 05:54] LABS: Basophils # 0.1 10*3/uL (0.0-0.2); Basophils % 0.6 % (0.0-0.8); Eosinophils # 0.1 10*3/uL (0.0-0.87); Eosinophils % 1.1 % (0.00-10.9); Hematocrit 30.4 VOL% (35.7-47.0); Hemoglobin 10.1 GM/DL (12.0-16.0); Immature Granulocytes % 1.5 %; Immature Granulocytes Absolute 0.16 #; Lymphocytes # 1.2 10*3/uL (1.4-4.0); Lymphocytes % 11.2 % (21.3-54.2); Mean Corpuscular HGB Conc 33.2 GM/DL (32-36); Mean Corpuscular Hemoglobin 29 PG (27-34); Mean Corpuscular Volume 86.4 FL (87-102); Monocytes # 0.8 10*3/uL (0.11-0.8); Monocytes % 7.2 % (1.7-12.7); NRBC # 0.02 10*3/uL; Neutrophils # 8.4 10*3/uL (1.4-7.4); Neutrophils % 78.4 % (38.7-73.9); Platelet Count 477 T/CUMM (130-400); Red Blood Count 3.52 MC/CUMM (3.8-5.5); Red Cell Distribution Width 17.3 % (9.3-17.3); White Blood Count 10.7 T/CUMM (4-12)
[2017-06-18 06:22] LABS: Calcium 8.6 MG/DL (8.5-10.1); Osmolality,Calculated 279.3 MOS/KG (273-304); Potassium 4.1 MMOL/L (3.5-5.1)
[2017-06-18] MEDS: ALBUTEROL 2.5 MG/3 ML NEB RESP TX SCH ×3 (07:40→21:17)
[2017-06-18] MEDS: SODIUM CHLORIDE 0.45% 1,000 ML IV SCH (08:45)
[2017-06-18] MEDS: NYSTATIN 500,000 UNIT/5 ML UDCUP SWISH/SWAL SCH ×4 (08:46→21:01)
[2017-06-18] MEDS: MAGNESIUM CHLORIDE 64 MG TABLET PO SCH (08:48)
[2017-06-18] MEDS: ASCORBIC ACID 500 MG TABLET PO SCH ×2 (08:48→21:01)
[2017-06-18] MEDS: POTASSIUM CHLORIDE 10 MEQ TABLET PO SCH ×2 (08:48→21:01)
[2017-06-18] MEDS: PANTOPRAZOLE 40 MG TABLET PO SCH (08:49)
[2017-06-18] MEDS: FLUTICASONE 50 MCG NASAL SPRAY 16 GM BOTTLE BOTH NARES SCH ×2 (08:50→21:39)
[2017-06-18] MEDS: ENOXAPARIN 40 MG/0.4 ML SYRINGE SUBCUT SCH (08:50)
[2017-06-18] MEDS: METOPROLOL TARTRATE 25 MG TABLET PO SCH ×2 (08:50→21:01)
[2017-06-18] MEDS: ACETAMINOPHEN 325 MG TABLET PO PRN (12:23)
[2017-06-18] MEDS: ALUMINUM/MAGNES/SIMETH MAX STR 30 ML UDCUP PO SCH (12:38)
[2017-06-18] MEDS: LACTOBACILLUS RHAMNOSUS GG CAPSULE PO SCH (14:55)
[2017-06-18] MEDS: cefTRIAXone 1,000 MG in SYRINGE 1 EACH IV SCH (14:56)
[2017-06-18] MEDS: SODIUM HYPOCHLORITE 0.25% IRRIG 473 ML BOTTLE TOP SCH (15:01)
[2017-06-18] MEDS: DESITIN 4OZ/NYSTATIN 15 GRAM MIXTURE PASTE TOP SCH ×2 (15:01→22:54)
[2017-06-18] MEDS: FLUCONAZOLE INJ 100 MG in IV BAG 1 EACH IV SCH (21:10)
[2017-06-19] MEDS: MEROPENEM 1,000 MG in SYRINGE 1 EACH IV SCH (02:49)
[2017-06-19] MEDS: metroNIDAZOLE INJ 500 MG in PREMIX 1 EACH IV SCH ×2 (02:54→11:42)
[2017-06-19 05:46] LABS: Basophils # 0.1 10*3/uL (0.0-0.2); Basophils % 0.6 % (0.0-0.8); Eosinophils # 0.1 10*3/uL (0.0-0.87); Hematocrit 32.4 VOL% (35.7-47.0); Hemoglobin 10.8 GM/DL (12.0-16.0); Immature Granulocytes % 1.1 %; Immature Granulocytes Absolute 0.13 #; Lymphocytes # 1.2 10*3/uL (1.4-4.0); Lymphocytes % 9.6 % (21.3-54.2); Mean Corpuscular HGB Conc 33.3 GM/DL (32-36); Mean Corpuscular Hemoglobin 29 PG (27-34); Mean Corpuscular Volume 86.6 FL (87-102); Mean Platelet Volume 10.7 FL (9.6-12.0); Monocytes # 0.9 10*3/uL (0.11-0.8); Monocytes % 7.2 % (1.7-12.7); Neutrophils # 9.8 10*3/uL (1.4-7.4); Neutrophils % 80.5 % (38.7-73.9); Platelet Count 541 T/CUMM (130-400); Red Blood Count 3.74 MC/CUMM (3.8-5.5); Red Cell Distribution Width 17.2 % (9.3-17.3); White Blood Count 12.1 T/CUMM (4-12)
[2017-06-19 06:26] LABS: Calcium 9.4 MG/DL (8.5-10.1); Magnesium 2.1 MG/DL (1.8-2.4); Osmolality,Calculated 272.7 MOS/KG (273-304); Potassium 4.3 MMOL/L (3.5-5.1)
[2017-06-19] MEDS: ONDANSETRON 4 MG/2 ML VIAL IV PRN (08:13)
[2017-06-19] MEDS: ALBUTEROL 2.5 MG/3 ML NEB RESP TX SCH ×3 (08:22→23:20)
[2017-06-19] MEDS: POTASSIUM CHLORIDE 10 MEQ TABLET PO SCH ×2 (10:43→21:20)
[2017-06-19] MEDS: PANTOPRAZOLE 40 MG TABLET PO SCH (10:44)
[2017-06-19] MEDS: METOPROLOL TARTRATE 25 MG TABLET PO SCH ×2 (10:44→21:20)
[2017-06-19] MEDS: LACTOBACILLUS RHAMNOSUS GG CAPSULE PO SCH (10:44)
[2017-06-19] MEDS: ASCORBIC ACID 500 MG TABLET PO SCH ×2 (10:44→21:21)
[2017-06-19] MEDS: SODIUM HYPOCHLORITE 0.25% IRRIG 473 ML BOTTLE TOP SCH (10:44)
[2017-06-19] MEDS: ENOXAPARIN 40 MG/0.4 ML SYRINGE SUBCUT SCH (10:45)
[2017-06-19] MEDS: ASPIRIN EC 81 MG TABLET PO SCH (10:45)
[2017-06-19] MEDS: NYSTATIN 500,000 UNIT/5 ML UDCUP SWISH/SWAL SCH ×4 (10:45→21:20)
[2017-06-19] MEDS: FLUTICASONE 50 MCG NASAL SPRAY 16 GM BOTTLE BOTH NARES SCH ×2 (10:45→21:20)
[2017-06-19] MEDS: MAGNESIUM CHLORIDE 64 MG TABLET PO SCH (10:45)
[2017-06-19] MEDS: ALUMINUM/MAGNES/SIMETH MAX STR 30 ML UDCUP PO SCH (10:46)
[2017-06-19] MEDS: DESITIN 4OZ/NYSTATIN 15 GRAM MIXTURE PASTE TOP SCH ×2 (10:46→21:21)
[2017-06-19] MEDS: AMOXICILLIN 500 MG CAPSULE PO SCH ×2 (14:03→21:20)
[2017-06-19] MEDS: cefTRIAXone 1,000 MG in SYRINGE 1 EACH IV SCH (17:01)
[2017-06-19] MEDS ORDERED: HEPARIN LOCK FLUSH 500 UNIT/5 ML SYRINGE IV ONE (17:09)
[2017-06-19] MEDS: FLUCONAZOLE INJ 100 MG in IV BAG 1 EACH IV SCH (21:17)
[2017-06-19] MEDS ORDERED: oxyCODONE/ACETAMINOPHEN 5-325 MG TABLET PO PRN (21:35)
[2017-06-19] MEDS ORDERED: ZALEPLON 5 MG CAPSULE PO ONE (21:36)
[2017-06-20] MEDS: AMOXICILLIN 500 MG CAPSULE PO SCH (05:41)
[2017-06-20 06:10] LABS: Basophils # 0.1 10*3/uL (0.0-0.2); Basophils % 0.5 % (0.0-0.8); Eosinophils # 0.2 10*3/uL (0.0-0.87); Eosinophils % 1.7 % (0.00-10.9); Hematocrit 33.6 VOL% (35.7-47.0); Immature Granulocytes % 1.1 %; Immature Granulocytes Absolute 0.12 #; Lymphocytes # 1.7 10*3/uL (1.4-4.0); Lymphocytes % 15.1 % (21.3-54.2); Mean Corpuscular HGB Conc 32.7 GM/DL (32-36); Mean Corpuscular Hemoglobin 28 PG (27-34); Mean Corpuscular Volume 86.6 FL (87-102); Mean Platelet Volume 10.4 FL (9.6-12.0); Monocytes % 8.7 % (1.7-12.7); Neutrophils # 8.1 10*3/uL (1.4-7.4); Neutrophils % 72.9 % (38.7-73.9); Platelet Count 567 T/CUMM (130-400); Red Blood Count 3.88 MC/CUMM (3.8-5.5); Red Cell Distribution Width 17.3 % (9.3-17.3); White Blood Count 11.2 T/CUMM (4-12)
[2017-06-20 07:43] LABS: Calcium 9.7 MG/DL (8.5-10.1); Magnesium 2.4 MG/DL (1.8-2.4); Osmolality,Calculated 274.7 MOS/KG (273-304); Potassium 4.4 MMOL/L (3.5-5.1)
[2017-06-20] MEDS: ALBUTEROL 2.5 MG/3 ML NEB RESP TX SCH (07:50)
[2017-06-20] MEDS: ASPIRIN EC 81 MG TABLET PO SCH (09:41)
[2017-06-20] MEDS: ASCORBIC ACID 500 MG TABLET PO SCH (09:41)
[2017-06-20] MEDS: POTASSIUM CHLORIDE 10 MEQ TABLET PO SCH (09:42)
[2017-06-20] MEDS: MAGNESIUM CHLORIDE 64 MG TABLET PO SCH (09:43)
[2017-06-20] MEDS: LACTOBACILLUS RHAMNOSUS GG CAPSULE PO SCH (09:43)
[2017-06-20] MEDS: PANTOPRAZOLE 40 MG TABLET PO SCH (09:43)
[2017-06-20] MEDS: METOPROLOL TARTRATE 25 MG TABLET PO SCH (09:46)
[2017-06-20] MEDS: NYSTATIN 500,000 UNIT/5 ML UDCUP SWISH/SWAL SCH (09:46)
[2017-06-20] MEDS: ENOXAPARIN 40 MG/0.4 ML SYRINGE SUBCUT SCH (09:47)
[2017-06-20] MEDS: SODIUM HYPOCHLORITE 0.25% IRRIG 473 ML BOTTLE TOP SCH (09:48)
[2017-06-20] MEDS: DESITIN 4OZ/NYSTATIN 15 GRAM MIXTURE PASTE TOP SCH (09:48)
[2017-06-20] MEDS: ALUMINUM/MAGNES/SIMETH MAX STR 30 ML UDCUP PO SCH (09:49)
[2017-06-20] MEDS: FLUTICASONE 50 MCG NASAL SPRAY 16 GM BOTTLE BOTH NARES SCH (10:06)
[2017-06-20 11:21] VITALS: BP 114/79
[2017-06-20] MEDS: cefTRIAXone 1,000 MG in SYRINGE 1 EACH IV SCH (12:01)
== END 2017-06-20 11:45 | disposition home health service (06) | DRG 907 ==
LOC: EDUNIT# → EDBD → N.ED 09:50 → N.EDINP 10:12 → N.5E 16:52 → N.CVR 06-06 19:58 → N.CC 06-06 22:20 → N.3E 06-11 21:25
PROVIDERS: ADMIT Specialist; ATTEND Specialist